=== PATIENT | male | born 1985 | race Caucasian/White ===

== ENCOUNTER 2016-07-04 14:43 | Emergency (ER) | payer OTHER ==
[2016-07-04] MEDS ORDERED: Ondansetron ODT TAB* 4 MG SL ONE (14:59)
[2016-07-04] MEDS ORDERED: Loperamide CAP* 2 MG PO ONE (14:59)
[2016-07-04] MEDS ORDERED: cloNIDine 0.1 MG PATCH* 0.1 MG/24 HR 7 DAY PATCH TRANSDERM ONE (15:00)
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
[2016-07-04 15:58] LABS: Hematocrit 45 % (42-52); Mean Corpuscular HGB Conc 34 g/dl (31-36); Mean Corpuscular Hemoglobin 29 pg (27-31); Mean Corpuscular Volume 85 fL (80-94); Mean Platelet Volume 10 um3 (7.4-10.4); Red Blood Count 5.25 10^6/ul (4.0-5.4); Red Cell Distribution Width 14 % (10.5-15); White Blood Count 4.5 10^3/ul (3.5-10.8)
[2016-07-04 17:12] LABS: BUN/Creatinine Ratio 12.8 (8-20); Calcium 9.7 mg/dL (8.6-10.3); EGFR African American 135.2 (>60); EGFR Non-African American 105.1 (>60); Magnesium 1.9 mg/dL (1.9-2.7)
[2016-07-04 17:13] VITALS: BP 123/71
[2016-07-04 17:13] LABS: Potassium 4.1 mmol/L (3.5-5.0)
== END 2016-07-04 17:31 | disposition home or self-care (01) ==
LOC: ED 14:43
DX: F11.20 Opioid dependence, uncomplicated (principal); F11.23 Opioid dependence with withdrawal; R11.2 Nausea with vomiting, unspecified; F17.210 Nicotine dependence, cigarettes, uncomplicated; R19.7 Diarrhea, unspecified; F41.9 Anxiety disorder, unspecified
CPT/HCPCS: 36415; 80048; 83735; 85025; 99283; A9270-GY

== ENCOUNTER 2017-01-14 19:04 | Emergency (ER) | payer OTHER ==
[2017-01-14 19:42] VITALS: BP 138/72
--- NOTE | 2017-01-14 19:43 | UC ---
Skin Complaint HPI - HPI Summary HPI Summary: Suddenly getting small itchy spots/sores/wounds on hands, groin, feet, neck, abdomen starting more than one week ago. 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 Does not know what is causing these. Recently moved into intermediate house and has been sexually active recently. - History of Current Complaint Time Seen by Provider: 01/14/17 19:29 Stated Complaint: SKIN COMPLAINT Hx Obtained From: Patient Onset/Duration: Gradual Onset, Lasting Days Timing: Constant Onset Severity: Mild Current Severity: Moderate Location: Diffuse Character: Pruritus, Raised Alleviating Factor(s): Nothing Associated Signs & Symptoms: Positive: Rash - Allergy/Home Medications Allergies/Adverse Reactions: Allergies Allergy/AdvReac Type Severity Reaction Status Date / Time Penicillins Allergy Severe Swelling Verified 01/14/17 19:37 Home Medications: Home Medications Buprenorphine/Naloxone SL TAB* [Suboxone 8-2 mg SL TAB*] 1 tab.sl SL DAILY 01/14 [History Confirmed 01/14/17] Mirtazapine TAB* [Remeron TAB*] 15 mg PO BEDTIME 01/14/17 [History Confirmed ] Review of Systems Constitutional: Negative Skin: Rash Eyes: Negative ENT: Negative Respiratory: Negative Cardiovascular: Negative Gastrointestinal: Negative Genitourinary: Negative Motor: Negative Neurovascular: Negative Musculoskeletal: Negative Neurological: Negative Psychological: Negative Is Patient Immunocompromised?: No All Other Systems Reviewed And Are Negative: Yes PMH/Surg Hx/FS Hx/Imm Hx Other GI/ History: Hep C Other Psychological History: in recovery for heroin -- on suboxone Other History Of: Hepatitis C - Surgical History Surgical History: None - Family History Known Family History: Positive: Hypertension - Social History Occupation: Employed Part-time, Student Alcohol Use: Rare Substance Use Type: Cocaine, Heroin, Marijuana Substance Use Comment - Amount & Last Used: GIRLFRIEND STATES HE TESTED POSITIVE FOR COCAINE AT [facility] Smoking Status (MU): Heavy Every Day Tobacco Smoker Type: Cigarettes Amount Used/How Often: 1 PPD Household Exposure Type: Cigarettes Physical Exam Triage Information Reviewed: Yes Appearance: No Pain Distress, Well-Nourished Vital Signs Reviewed: Yes Eye Exam: Normal, Other - PERRL Eyes: Positive: Conjunctiva Clear ENT Exam: Normal ENT: Positive: Normal ENT inspection, Hearing grossly normal, Pharynx normal, TMs normal Dental Exam: Normal Neck exam: Normal Neck: Positive: Supple, Nontender, No Lymphadenopathy Respiratory Exam: Normal Respiratory: Positive: Chest non-tender, Lungs clear, Normal breath sounds, No respiratory distress, No accessory muscle use Cardiovascular Exam: Normal Cardiovascular: Positive: RRR, No Murmur Musculoskeletal Exam: Normal Neurological Exam: Normal Neurological: Positive: Alert Psychological Exam: Normal Skin Exam: Other - multiple red area siwth secondary excoriations on hands, arms , neck, groin, feet Course/Dx - Diagnoses Provider Diagnoses: scabies Discharge - Discharge Plan Condition: Stable Disposition: HOME Prescriptions: Ivermectin (NF) [Stromectol (NF)] 18 mg PO WEEKLY #12 tab Permethrin 5% CREAM* 1 applic TOPICAL SEE INSTRUCTIONS #1 tube Patient Education Materials: Scabies (ED) Referrals: [facility] [Provider Group] - 1 Week Additional Instructions: Follow up with the [facility] for primary care. Remember you need to wash your clothes and bedding in hot water and use a hot dryer to kill all the mites. Repeat your skin cream, pills, and washing routine after one week.
== END 2017-01-14 20:08 | disposition home or self-care (01) ==
LOC: UCCORT 19:04
DX: B86 Scabies (principal); Z88.0 Allergy status to penicillin; F14.90 Cocaine use, unspecified, uncomplicated; F11.90 Opioid use, unspecified, uncomplicated; F12.90 Cannabis use, unspecified, uncomplicated; F17.210 Nicotine dependence, cigarettes, uncomplicated
CPT/HCPCS: 99212; G0463